=== PATIENT | male | born 1975 | race African-American/Black ===

== ENCOUNTER 2016-07-01 23:11 | Emergency (ER) | payer MEDICAID, OTHER ==
[~2016-07-01] VITALS: Ht 190.5 cm; Wt 86.2 kg
[~2016-07-01 23:11] MED LIST: IBUPROFEN600 MG ORAL
[2016-07-02] MEDS ORDERED: NORCO 5-325 TA1 EAC1 ORAL (01:29)
[2016-07-02] MEDS ORDERED: IBUPROFEN600 MG ORAL (01:29)
[2016-07-02 01:53] VITALS: BP 146/98
[2016-07-02 02:33] VITALS: BP 146/98
--- NOTE | 2016-07-02 12:03 | Diagnostic Imaging Report ---
Indication: PAIN Technique: 3 views right foot Comparison: none Findings: There is a nondisplaced transverse fracture of the fourth metatarsal shaft. No other acute fractures. No dislocations. There is mild hallux valgus and metatarsus adductus. Impression: Positive for fourth metatarsal shaft fracture This agrees with the preliminary interpretation provided by the emergency room physician
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
== END 2016-07-02 02:36 | disposition home or self-care (01) ==
LOC: EMR 23:45
DX: S92.344A Nondisplaced fracture of fourth metatarsal bone, right foot, initial encounter for closed fracture (principal); V19.9XXA Pedal cyclist (driver) (passenger) injured in unspecified traffic accident, initial encounter; Y93.55 Activity, bike riding; Y92.9 Unspecified place or not applicable
CPT/HCPCS: 99283

== ENCOUNTER 2016-11-04 00:55 | Emergency (ER) | payer MEDICAID ==
[~2016-11-04] VITALS: Ht 190.5 cm; Wt 83.9 kg
[~2016-11-04 00:55] MED LIST changes: +NORCO 5-325 TA1 EAC1 ORAL
[2016-11-04] MEDS ORDERED: NKM (01:04)
[2016-11-04 01:14] VITALS: BP 137/86
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
[2016-11-04] MEDS ORDERED: TRAMADOL HCL50 MG ORAL (01:49)
[2016-11-04] MEDS ORDERED: IBUPROFEN600 MG ORAL (01:49)
[2016-11-04 02:08] VITALS: BP 137/86
== END 2016-11-04 02:10 | disposition home or self-care (01) ==
LOC: EMR 01:30
DX: S70.01XA Contusion of right hip, initial encounter (principal); S40.011A Contusion of right shoulder, initial encounter; V43.52XA Car driver injured in collision with other type car in traffic accident, initial encounter; Y93.9 Activity, unspecified; Y92.410 Unspecified street and highway as the place of occurrence of the external cause; F17.200 Nicotine dependence, unspecified, uncomplicated
CPT/HCPCS: 99284

== ENCOUNTER 2017-03-11 10:27 | Emergency (ER) | payer MEDICAID ==
[~2017-03-11] VITALS: Ht 188 cm; Wt 83.9 kg
[~2017-03-11 10:27] MED LIST changes: +NKM; +TRAMADOL HCL50 MG ORAL
[2017-03-11] MEDS ORDERED: ROBAXIN-750750 MG PO (11:28)
[2017-03-11] MEDS ORDERED: IBUPROFEN600 MG ORAL (11:28)
[2017-03-11 11:45] VITALS: BP 120/80
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
== END 2017-03-11 11:49 | disposition home or self-care (01) ==
LOC: EMR 11:15
DX: S29.012A Strain of muscle and tendon of back wall of thorax, initial encounter (principal); S16.1XXA Strain of muscle, fascia and tendon at neck level, initial encounter; V89.2XXA Person injured in unspecified motor-vehicle accident, traffic, initial encounter; Y93.9 Activity, unspecified; Y99.9 Unspecified external cause status; M54.2 Cervicalgia; M25.511 Pain in right shoulder; M25.512 Pain in left shoulder
CPT/HCPCS: 99283